=== PATIENT | female | born 1960 | race Caucasian/White ===

== ENCOUNTER → 2021-12-15 15:33 | Outpatient (CLI) | payer OTHER, SELFPAY ==
--- NOTE | 2021-12-15 15:39 | DI.MRI.S_ITS ---
PROCEDURE: MR ABDOMEN WO/W CON INDICATIONS: LIVER LESION TECHNIQUE: Coronal HASTE, axial 2D FLASH in- and [id number]; axial breath-hold T2 FSE. Dynamic axial VIBE during the administration of contrast; post-contrast coronal VIBE or 2D FLASH with fat saturation from the hepatic dome to the iliac crests. Optional diffusion weighted imaging and ADC may be performed. COMPARISON: CT abdomen pelvis 12/23/2002. FINDINGS: Image quality: Suboptimal due to motion artifact. Lung bases: No basal pleural effusions. Liver: Two enhancing structures are present in the right lobe of the liver. Both demonstrate arterial phase hyperenhancement and remain hyper-enhancing on delayed phase images, similar to blood pool. The larger is in segment 7, measuring 1.1 centimeters (series 6, image 27). The smaller is in segment 8/7, measuring 0.7 centimeters (series 6, image 25). The segment 7 finding does not have an obvious/very hyperintense correlate on T2 weighted images, however T2 weighted images are degraded by motion artifact. Under arterial phase images, it appears largely peripherally enhancing, however some nodular areas of enhancement are also demonstrated. Internal enhancement is more homogeneous on later phase images. The segment 8/7 finding demonstrates mild T2 hyperintensity, and has adjacent arterial phase hyperenhancement which appears larger than the true size of the lesion on precontrast T1 and delayed phase post-contrast images, could reflect a degree of transient hepatic intensity difference. The segment 7 finding was likely present on prior CT. A 2-3 mm focus of T2 hyperintensity in segment 2 likely represents a tiny cyst or hemangioma, difficult to characterize due to small size. Solid organs: Gallbladder is unremarkable without definite stones visualized. Biliary system is non dilated. Pancreas is normal in morphology. Spleen is normal in size and enhancement. No adrenal nodules. Both kidneys demonstrate normal size and enhancement, without hydronephrosis. Nodes and vessels: No retroperitoneal or mesenteric adenopathy by size criteria. Aorta and inferior vena cava are normal in size. Bowel and peritoneum: Unenhanced bowel loops are normal in caliber. No free fluid. Bones and soft tissues: No ventral hernias. Bone marrow is normal in overall signal. IMPRESSION: Two enhancing structures are present in the right lobe of the liver. The smaller is in segment 8/7 and likely represents a small hemangioma. The larger of the findings is in segment 7 and is nonspecific but could represent an atypical hemangioma, other etiologies are not excluded. It was likely present on the 2002 CT however, with lack of substantial change in size since that time suggestive of a benign or indolent etiology. Consider imaging follow-up to ensure stability, with an initial interval of 3-6 months or at clinical discretion. Dictated by: Tyrone Bradshaw M.D. on 12/16/2021 at 8:13 Approved by: Tyrone Bradshaw M.D. on 12/16/2021 at 8:50
== END ==
PROVIDERS: Referring Provider Internal Medicine Gastroenterology; Visit Provider Internal Medicine Gastroenterology
DX: K76.9 Liver disease, unspecified (principal)
CPT/HCPCS: 74183